=== PATIENT | male | born 1985 | race Caucasian/White ===

== ENCOUNTER 2019-04-05 01:59 | Emergency (ER) | payer SELFPAY ==
[2019-04-05] MEDS ORDERED: Lidocaine 1% (PF) 30 ML VIAL ONE (02:14)
== END 2019-04-05 04:12 | disposition home or self-care (01) ==
LOC: ERS 01:59
DX: S56.124A Laceration of flexor muscle, fascia and tendon of left middle finger at forearm level, initial encounter (principal); S56.126A Laceration of flexor muscle, fascia and tendon of left ring finger at forearm level, initial encounter; S61.012A Laceration without foreign body of left thumb without damage to nail, initial encounter; S61.211A Laceration without foreign body of left index finger without damage to nail, initial encounter; I10 Essential (primary) hypertension; F17.210 Nicotine dependence, cigarettes, uncomplicated; Z23 Encounter for immunization; W26.0XXA Contact with knife, initial encounter
CPT/HCPCS: 12002; J2001

== ENCOUNTER 2019-04-07 15:55 | Emergency (ER) | payer SELFPAY ==
--- NOTE | 2019-04-07 16:42 | RAD ---
LEFT HAND THREE VIEWS: HISTORY: Injury. FINDINGS: The carpals, metacarpals and phalanges appear unremarkable. No fracture or osseous abnormality identi fied. IMPRESSION: Unremarkable left hand. POS: OFF
== END 2019-04-07 18:06 | disposition home or self-care (01) ==
LOC: ERS 15:55
DX: S66.121A Laceration of flexor muscle, fascia and tendon of left index finger at wrist and hand level, initial encounter (principal); S66.123A Laceration of flexor muscle, fascia and tendon of left middle finger at wrist and hand level, initial encounter; S66.125A Laceration of flexor muscle, fascia and tendon of left ring finger at wrist and hand level, initial encounter; I10 Essential (primary) hypertension; F17.210 Nicotine dependence, cigarettes, uncomplicated; Z79.899 Other long term (current) drug therapy; X58.XXXA Exposure to other specified factors, initial encounter
CPT/HCPCS: 29125

== ENCOUNTER 2019-04-12 12:40 | Outpatient (CLI) | payer OTHER, SELFPAY ==
[2019-04-12 14:19] LABS: #Basophils 0.1 thou/uL (0.0-0.2); #Eosinphils 0.5 thou/uL (0.0-0.7); #Lymphocytes 3.2 thou/uL (1.20-3.40); #Monocytes 0.6 thou/uL (0.11-0.59); #Neutrophils 7.9 thou/uL (1.40-6.50); %Basophils 0.6 % (0.0-1.0); %Eosinophils 4.3 % (0.0-10.0); %Lymphocytes 26.1 % (21.0-51.0); %Monocytes 4.6 % (0.0-10.0); %Neutrophils 64.4 % (42.0-75.0); Hemoglobin 15.3 g/dL (14.0-18.0); Mean Corpuscular HGB CONC 33.5 g/dL (32.0-36.0); Mean Corpuscular Hemoglobin 30.8 pg (27.0-31.0); Mean Corpuscular Volume 91.8 fL (78.0-98.0); Mean Platelet Volume 7.2 fL (7.4-10.4); Platelet Count 364 thou/uL (130-400); RBC Distribution Width 12.1 % (11.5-14.5); Red Blood Cell (RBC) Count 4.97 mill/uL (4.70-6.10); White Blood Cell (WBC) Count 12.3 thou/uL (4.8-10.8)
--- NOTE | 2019-04-12 16:32 | EKG ---
Test Reason : Blood Pressure : / mmHG Vent. Rate : 069 BPM Atrial Rate : 069 BPM P-R Int : 146 ms QRS Dur : 084 ms QT Int : 380 ms P-R-T Axes : 012 083 001 degrees QTc Int : 407 ms Normal sinus rhythm possible inferior scar When compared with ECG of 26-FEB-2010 18:48, T wave inversion now evident in Inferior leads Confirmed by DR. Fozia HAQ ([id number]) on 04/12/2019 4:32:27 PM Referred By: DEVENDRA Confirmed By:DR. Fozia HAQ
== END 2019-04-12 12:41 | disposition home or self-care (01) ==
LOC: LABBT 12:40
PROVIDERS: ATTEND Orthopaedic Surgery Hand Surgery
DX: Z01.812 Encounter for preprocedural laboratory examination (principal); S61.211A Laceration without foreign body of left index finger without damage to nail, initial encounter; S61.213A Laceration without foreign body of left middle finger without damage to nail, initial encounter; S61.215A Laceration without foreign body of left ring finger without damage to nail, initial encounter; S66.119A Strain of flexor muscle, fascia and tendon of unspecified finger at wrist and hand level, initial encounter
CPT/HCPCS: 85025; 93005; 93010

== ENCOUNTER 2019-04-13 11:56 | Observation (INO) | payer OTHER, SELFPAY ==
[2019-04-12 12:49] VITALS: BMI 32.5
[2019-04-13] MEDS ORDERED: Lidocaine 1% PF 5 ML VIAL ONE (12:25)
[2019-04-13] MEDS ORDERED: PROPOFOL 200 MG/20 ML VIAL ONE (12:25)
[2019-04-13] MEDS ORDERED: Dexamethasone 20 MG/5 ML VIAL ONE (12:25)
[2019-04-13 12:52] LABS: #Basophils 0.1 thou/uL (0.0-0.2); #Eosinphils 0.5 thou/uL (0.0-0.7); #Lymphocytes 2.8 thou/uL (1.20-3.40); #Monocytes 0.4 thou/uL (0.11-0.59); #Neutrophils 2.1 thou/uL (1.40-6.50); %Basophils 1.8 % (0.0-1.0); %Eosinophils 7.9 % (0.0-10.0); %Lymphocytes 47.4 % (21.0-51.0); %Monocytes 7.1 % (0.0-10.0); %Neutrophils 35.8 % (42.0-75.0); Mean Corpuscular HGB CONC 34.5 g/dL (32.0-36.0); Mean Corpuscular Hemoglobin 31.5 pg (27.0-31.0); Mean Corpuscular Volume 91.6 fL (78.0-98.0); Mean Platelet Volume 6.8 fL (7.4-10.4); Platelet Count 333 thou/uL (130-400); RBC Distribution Width 11.9 % (11.5-14.5); Red Blood Cell (RBC) Count 4.75 mill/uL (4.70-6.10); White Blood Cell (WBC) Count 5.9 thou/uL (4.8-10.8)
[2019-04-13] MEDS ORDERED: Sodium Chloride 0.9% 10 ML ONE ×2 (15:01→21:41)
[2019-04-13] MEDS ORDERED: Betamet Acet/Betamet Na Ph 30 MG/5 ML VIAL ONE (15:01)
[2019-04-13] MEDS ORDERED: Bacitracin Zinc Ointment 30 gm TUBE ONE (15:01)
[2019-04-13] MEDS ORDERED: Bupivacaine PF 0.5% 30 ML VIAL ONE (15:01)
[2019-04-13] MEDS ORDERED: Fentanyl 100 MCG/2 ML VIAL ONE ×3 (15:02→23:33)
[2019-04-13 15:27] LABS: Anion Gap 12 mmol/L (10-20); BUN (Urea Nitrogen) 15 mg/dL (8.9-20.6); Calc. Creatinine Clearance 167 mL/min (70-130); Calcium 9.3 mg/dL (7.8-10.44); Carbon Dioxide 23 mmol/L (22-29); Chloride 105 mmol/L (98-107); Estimated GFR-MDRD Greater than 90; Glucose 70 mg/dL (70-105); Potassium 4.4 mmol/L (3.5-5.1); Sodium 136 mmol/L (136-145)
[2019-04-13] MEDS ORDERED: Lidocaine 2% PF 5 ML VIAL ONE (18:02)
[2019-04-13] MEDS ORDERED: Heparin 10,000 UNITS/1 ML VIAL ONE (18:02)
[2019-04-13] MEDS ORDERED: Hetastarch 6% 500 ML 500 ML ONE (18:02)
[2019-04-13] MEDS ORDERED: HYDROmorphone 2 MG/ML VIAL ONE (18:30)
--- NOTE | 2019-04-13 22:14 | RAD ---
EXAM: 2 views of the left hand COMPARISON: None HISTORY: Incorrect needle count in the operating room FINDINGS: 2 views of the left hand shows no evidence of acute fracture or dislocation. No degenerativ e changes are seen. No soft tissue swelling is present. No radiopaque foreign body is seen. IMPRESSION: Unremarkable exam.
[2019-04-13] MEDS ORDERED: Ondansetron HCl/PF 4 MG/2 ML Vial IVP PRN (22:39)
[2019-04-13] MEDS ORDERED: HYDROmorphone 2 MG/ML VIAL SLOW IVP PRN (22:39)
[2019-04-13] MEDS ORDERED: Promethazine HCl 25 MG/ML VIAL SLOW IVP PRN (22:39)
[2019-04-13] MEDS ORDERED: Promethazine HCl 25 MG/ML VIAL IM PRN ×2 (22:39→23:20)
[2019-04-13] MEDS ORDERED: traMADol HCl 50 MG TAB PO PRN (23:20)
[2019-04-13] MEDS ORDERED: HYDROcodone/Acetaminophen 5/325 mg Tablet PO PRN (23:20)
[2019-04-13] MEDS ORDERED: Ondansetron PF 4 MG/2 ML Vial IV PRN (23:20)
[2019-04-13] MEDS ORDERED: Meperidine HCl/PF 25 MG/ML VIAL IM PRN (23:22)
[2019-04-13] MEDS ORDERED: TETANUS AND DIPHTHERIA TOX/PF 0.5 ML DISP.SYRIN IM SCH (23:30)
[2019-04-13] MEDS ORDERED: Communication Order-Pharmacy FS PRN (23:30)
[2019-04-13] MEDS ORDERED: Vancomycin HCl 1.5 GM in Sodium Chloride 0.9% 250 ML 300 ML IVPB SCH (23:59)
[2019-04-14] MEDS: Morphine 4 MG/ML VIAL SLOW IVP PRN ×7 (00:57→19:34)
--- NOTE | 2019-04-14 07:56 | RAD ---
RIGHT SHOULDER RADIOGRAPHS 3 VIEWS: DATE: 04/14/2019. PROVIDED CLINICAL HISTORY: Right shoulder pain. FINDINGS: There is no evidence for a fracture or other acute osseous abnormality. If there is persis tent clinical concern conservative management and followup imaging are advised. IMPRESSION: As above. POS: OFF
[2019-04-14] MEDS: Vancomycin 1.5 GRAM/300 ML BAG 1.5 GM in Premix Bag 1 BAG IVPB SCH ×2 (08:19→18:27)
[2019-04-14] MEDS: Aspirin 81 mg Enteric Coated Tablet PO SCH ×2 (08:20→22:51)
[2019-04-14] MEDS ORDERED: Vancomycin HCl 1 GM in Premix Bag 1 BAG IVPB SCH (09:00)
[2019-04-14 15:40] LABS: Vancomycin, Trough 17.7 ug/mL
--- NOTE | 2019-04-14 18:45 | MRI ---
EXAM: RIGHT SHOULDER MRI WITHOUT IV CONTRAST: 04/14/19 HISTORY: Rotator cuff tear, unable to raise right arm above 90 degrees since surgery yesterday on the patient' s hand. FINDINGS: Multiplanar, multisequence MRI examination of the right shoulder is performed. There is very extensiv e abnormal swelling and edematous changes within the supraspinatus muscle. There is also some mild f at stranding within the suprascapular notch. There appears to be some very subtle edema and T2 hyperi ntensity within the superior aspect of the infraspinatus muscle. I feel that these changes are relate d to acute denervation. The supraspinatus and infraspinatus tendons appear intact. Subscapularis tend on and biceps tendons appear intact. The visualized labrum appears unremarkable. No acute osteochondr al defect. No evidence for synovial or ganglion cyst. IMPRESSION: Very extensive diffuse swelling and edematous changes of the supraspinatus muscle with some minimal c hanges within the superior aspect of the infraspinatus muscle having the appearance consistent with t hat of acute denervation. No evidence for other significant acute internal derangement. POS: RRE
[2019-04-14 21:00] VITALS: BP 133/61; TEMP 98.8
[2019-04-14] MEDS ORDERED: FLU VACC QS2019-20(6MOS UP)/PF 60 MCG/0.5 ML SYRINGE IM ONE (21:00)
--- NOTE | 2019-04-14 21:56 | OP ---
DATE OF PROCEDURE: 04/13/2019 ANESTHESIA: General LMA technique augmented by 30 mL of 0.5% Marcaine block, all metacarpophalangeal joint level of the involved digits. PREOPERATIVE DIAGNOSES: 1. Left index finger. a. Zone 2 flexor digitorum superficialis and flexor digitorum profundus laceration. b. Radial digital nerve laceration, left index finger. c. A 3 cm wound. 2. Left middle finger. a. Zone 2 flexor digitorum profundus and digitorum superficialis tendon laceration complete. b. Radial digital nerve laceration of 4 and 2.5 cm wound. 3. Left ring finger. a. Left ring finger 2.0 cm laceration. b. Left ring finger zone 2 flexor digitorum profundus laceration only. POSTOPERATIVE DIAGNOSES: 1. Left index finger. a. Zone 2 flexor digitorum superficialis and flexor digitorum profundus laceration. b. Radial digital nerve laceration, left index finger. c. A 3 cm wound. 2. Left middle finger. a. Zone 2 flexor digitorum profundus and digitorum superficialis tendon laceration complete. b. Radial digital nerve laceration of 4 and 2.5 cm wound. 3. Left ring finger. a. Left ring finger 2.0 cm laceration. b. Left ring finger zone 2 flexor digitorum profundus laceration only. 4. PROCEDURES PERFORMED: 1. Index finger, left. a. Wound debridement. b. Wound closure 3 cm complex. c. Microscopic radial digital nerve repair using microscope for the radial digital nerve repair and after both digital nerve neuroplasties. d. Flexor digitorum superficialis repair zone 2, both rami. e. Flexor digitorum profundus repair of laceration, complete. 2. Left middle finger. a. Left middle finger wound debridement. b. Left middle finger wound closure, 2.0 cm. c. Left middle finger microscopic digital nerve repair. d. Left middle finger neuroplasty, digital nerve. e. Left middle finger flexor digitorum superficialis laceration repair. f. Left middle finger flexor digitorum profundus zone 2 repair. 3. Left ring finger. a. Left ring finger wound debridement. b. Left ring finger wound closure of 4 cm. c. Radial digital nerve repair. COMPLICATIONS: None. ESTIMATED BLOOD LOSS: 100 mL. TOURNIQUET TIME: 2 hours and down for 50 minutes and up again for 1 hour. DESCRIPTION OF PROCEDURE: After successful general endotracheal anesthesia, the limb was prepped and draped. The patient had time-out done appropriately. We immediately gave 20 mL of 0.5% block in each of metacarpal heads. After these injectables, we waited 5 minutes and exsanguinated the limb. We inflated the tourniquet to 250 mmHg pressure, and placed him in a lay hand lechuga well-padded. We outlined all the transverse incisions to go 2 cm distal and 3 cm proximal, where space available. First, in the index finger, we dissected down to the neurovascular bundle, isolated digital nerve on the radial side, so the neurovascular bundle was intact on the ulnar side. We then debrided the wound using the following techniques. 1. Excisional techniques. 2. Instrumentation, Kaw blade, tenotomy scissors, microscissors, depth down to including, but not including bone. There was no complications. Once we performed debridement, and then we visualized grossly the digital nerves. We protected the neurovascular bundle especially on the ulnar side, it was still intact and we irrigated with 1 L of normal saline Pulsavac pressure. We then turned our attention to the flexor tendons. We had to release small 1/3 of the width. We then isolated both flexor profundus superficialis within the left index finger, it was completely torn. First, we used on the longus and thickened band of flexor digitorum superficialis, modified loop suture Supramid 4-0 x2 to achieve the side-limb technique, had excellent abutment. We oversewed with the paratenon, the superficial and deep layer with 6-0 running Prolene. Once we finished the flexor digitorum superficialis repair, we then coursed to flexor digitorum profundus repair and used the same techniques. Pulled it into the wound. We placed a curved Dulce tendon pass on it, so it will not migrate. The patient had the tendons now completed, brought the microscope on the field. We dissected out the digital nerve. Here, we found digital nerve to be lacerated just proximal to the bifurcation/trifurcation, so once we freshened the ends, artery on the radial side, we repaired it using four interrupted 8-0 Ethilon sutures. We then turned our attention to the middle finger on the same tourniquet. Did the same extension 1 cm distal to proximal, found neurovascular bundle and then performed a neuroplasty, it from the arterial supply. Radial, distal and the ulnar side, the circulation was intact grossly. The patient then had the same technique used for the flexor digitorum superficialis, repaired first in the flexor digitorum profundus repair, second on the middle finger without undue complications. There was excellent apposition and position of flexion consistent with a zone 2 all tendon repair. We finished the irrigation as well. The microscope was brought into the field and finished the nerve repair using the same four 8-0 nylon sutures. We now turned attention to the ring finger. We opened the incision very carefully, dissected down, immediately saw there was no flexor tendon profundus in the wound. The patient then had the microscope taken from the field, tourniquet was deflated, obtained hemostasis. We then closed the middle finger and the long finger wounds after finishing all of the tendon repairs, middle and index finger, flexor digitorum superficialis profundus repair with the side-limb technique in zone 2 and then the middle finger closure was completed as well as the index with same 4 interrupted nylon suture in a simple pattern. We then turned attention to the ring finger, where we reinflated tourniquet and exsanguination of limb, it was still very tenuous skin. We entered this through skin and subcutaneous tissue. We visualized the whole ulnar nerve and found that there had been an oblique laceration to the ulnar nerve, so via a microscopic neuroplasty, we identified the ends well, went back to loupe magnification, debrided it gently and then prepared for wound closure. The patient had the microscopic digital nerve neuroplasty completed, found radial digital nerve was torn at the ramification. We repaired all branches back to each other, placed a Celestone in this wound for completion of the procedure. The sutures were closed in same simple fashion and for the epidermis and dermis after hemostasis obtained, and the patient had no evidence of anesthetic or operative complication. Job ID: [id number]
== END 2019-04-14 21:55 | disposition home or self-care (01) ==
LOC: SDC 11:56 → T4-A 23:26
PROVIDERS: ADMIT Orthopaedic Surgery Hand Surgery; ATTEND Orthopaedic Surgery Hand Surgery
PROC: 01Q50ZZ Repair Median Nerve, Open Approach (ICD-10-PCS; principal; 2019-04-13)
PROC: 01Q40ZZ Repair Ulnar Nerve, Open Approach (ICD-10-PCS; 2019-04-13)
PROC: 01Q60ZZ Repair Radial Nerve, Open Approach (ICD-10-PCS; 2019-04-13)
PROC: 01Q40ZZ Repair Ulnar Nerve, Open Approach (ICD-10-PCS; 2019-04-13)
PROC: 0LM80ZZ Reattachment of Left Hand Tendon, Open Approach (ICD-10-PCS; 2019-04-13)
PROC: 0LM80ZZ Reattachment of Left Hand Tendon, Open Approach (ICD-10-PCS; 2019-04-13)
PROC: 0LM80ZZ Reattachment of Left Hand Tendon, Open Approach (ICD-10-PCS; 2019-04-13)
PROC: 0LM80ZZ Reattachment of Left Hand Tendon, Open Approach (ICD-10-PCS; 2019-04-13)
DX: S64.491A Injury of digital nerve of left index finger, initial encounter (principal); S61.201A Unspecified open wound of left index finger without damage to nail, initial encounter; S64.493A Injury of digital nerve of left middle finger, initial encounter; S66.123A Laceration of flexor muscle, fascia and tendon of left middle finger at wrist and hand level, initial encounter; S64.02XA Injury of ulnar nerve at wrist and hand level of left arm, initial encounter; S64.495A Injury of digital nerve of left ring finger, initial encounter; S66.125A Laceration of flexor muscle, fascia and tendon of left ring finger at wrist and hand level, initial encounter; S61.203A Unspecified open wound of left middle finger without damage to nail, initial encounter; S61.205A Unspecified open wound of left ring finger without damage to nail, initial encounter; F17.200 Nicotine dependence, unspecified, uncomplicated; Z79.1 Long term (current) use of non-steroidal anti-inflammatories (NSAID); Z79.2 Long term (current) use of antibiotics; Z88.0 Allergy status to penicillin; W26.0XXA Contact with knife, initial encounter
CPT/HCPCS: 36415; 80048; 80202; 85025; 87040; 90471; 90686; 96365; 96366; 96372; 96375; 96376; G0008; G0378; J0702; J1100; J1170; J1644; J2001; J2175; J2270; J2704; J3010; J3370; J3490; J7050; S0020

== ENCOUNTER → 2019-09-28 | Day surgery (SDC) | payer OTHER ==
[2019-09-27 12:29] VITALS: BMI 33.9
[~2019-09-28] MED LIST: Bacitracin Zinc Ointment 30 gm TUBE ONE; Bupivacaine PF 0.5% 30 ML VIAL ONE; Clindamycin/D5W 600 mg/50 ml Premix Bag ONE; Dexamethasone 20 MG/5 ML VIAL ONE; Fentanyl 100 MCG/2 ML VIAL ONE; Glycopyrrolate 0.2 MG/ML 5 ML SYRINGE ONE; HYDROcodone/Acetaminophen 5/325 mg Tablet ONE; Ketorolac Tromethamine 30 MG/ML VIAL ONE; Lidocaine 1% PF 5 ML VIAL ONE; Lidocaine 2% Jelly 5 ML TUBE ONE; Ondansetron PF 4 MG/2 ML Vial ONE; PROPOFOL 200 MG/20 ML VIAL ONE; Rocuronium Bromide 10 MG/ML (10ML VIAL) ONE; Succinylcholine Chloride 20 MG/ML 10 ml SYRINGE FS ONE
--- NOTE | 2019-09-28 17:27 | OP ---
DATE OF PROCEDURE: 09/28/2019 PREOPERATIVE DIAGNOSES: Small finger stitch abscess. FINDING: Deep suture abscess with extensor tenolysis covering a tract that went down to the residual of his core sutures of both the FDS ulnar side and the FDP repair (4-0 loop suture). Flexor tendon repair is intact, neurovascularly intact at the end of the procedure. PROCEDURE PERFORMED: 1. Flexor tenolysis, finger ulnarly, flexor profundus and superficialis over the entire length of the incision including the proximal phalanx and half of the middle phalanx. 2. Left middle finger suture abscess with laceration took place in line with some loose suture, but intact repair of flexor digitorum profundus superficialis in zone 2. TOURNIQUET TIME: 14 minutes. ESTIMATED BLOOD LOSS: 10 mL. INDICATION: Patient had persistent draining 2 mm wound just 3 mm from his incision site that he said despite antibiotics, local debridement and a [place], continued to drain. As a flexor tendon repair, we suggested it be debrided and explored before the sutures could be manipulated. DESCRIPTION OF PROCEDURE: After successful general endotracheal anesthesia, limb prepped and draped. We gave the patient 10 mL of 0.5% Marcaine block at metacarpophalangeal joint level. We then exsanguinated the limb, inflated tourniquet to 250 mmHg pressure and used the center portion of Hermes incision, which was 5 mm proximal and 1 cm distal to the lesion. We then extended it 5 mm proximally protecting neurovascular bundle, immediately found the tract where some necrotic tissue was drained and connected to retract at the flexor digitorum profundus repair. Also, had similar tract on both sides of the tendons from the superficialis and they underwent the same type of debridement as listed above with the same instrumentation. Once we were sure before we could even do this, however, we had to perform a flexor tenolysis over 3 cm area to expose the flexor tendon without put in danger. All repairs were intact. The joint did not have any contamination. We then finished the debridement of the abscess cavity with tenotomy scissors, Adson's, and a Crile. We then approached the remainder portion of the surgery irrigation using 3 L of normal saline with antibiotics inside. Deflated tourniquet had excellent refill and there was no nerve damage seen. Job ID: [id number]
== END ==
LOC: SDC 08:45
PROVIDERS: ATTEND Orthopaedic Surgery Hand Surgery
PROC: 0LN80ZZ Release Left Hand Tendon, Open Approach (ICD-10-PCS; principal; 2019-09-28)
DX: T81.41XA Infection following a procedure, superficial incisional surgical site, initial encounter (principal); F17.200 Nicotine dependence, unspecified, uncomplicated; Z88.0 Allergy status to penicillin
CPT/HCPCS: 87070; 87077; 87205; J1100; J1885; J2001; J2405; J2704; J3010; J3370; J3490; S0020

== ENCOUNTER 2024-06-04 09:36 | Emergency (ER) | payer OTHER ==
[2024-06-04] MEDS ORDERED: Ketorolac Tromethamine 30 MG (1 mL) VIAL ONE (11:18)
== END 2024-06-04 11:52 | disposition home or self-care (01) ==
LOC: ERS 09:36
DX: S62.251A Displaced fracture of neck of first metacarpal bone, right hand, initial encounter for closed fracture (principal); W26.8XXA Contact with other sharp object(s), not elsewhere classified, initial encounter
CPT/HCPCS: 96372; 99283; J1885